=== PATIENT | female | born 1980 | race African-American/Black ===

== ENCOUNTER 2020-09-18 18:01 | Emergency (ER) | payer SELFPAY ==
[2020-09-18] MEDS ORDERED: MAGNES/ALUMIN/SIMET 30ML UCUP ONE (20:02)
[2020-09-18] MEDS ORDERED: ONDANSETRON 4 MG/2 ML VIAL ONE (20:02)
[2020-09-18] MEDS ORDERED: ASCORBIC ACID 500 MG TABLET ONE (20:03)
[2020-09-18] MEDS ORDERED: LIDOCAINE VISCOUS 2% SOLN 15 ML UDC ONE (20:03)
--- NOTE | 2020-09-18 20:12 | RAD REPORT ---
EXAM DESCRIPTION: RAD - Chest Single View - 09/18/2020 7:57 pm CLINICAL HISTORY: CHEST PAIN Chest pain. COMPARISON: Chest Single View dated 01/11/2017 FINDINGS: Portable technique limits examination quality. The lungs are grossly clear. The heart is normal in size. No displaced fractures. IMPRESSION: No acute intrathoracic process suspected.
[2020-09-18 20:18] LABS: Absolute Lymphocytes (CBC) 2.2 K/uL (0.7-4.9); Basophils % 0.5 % (0-1.3); Hematocrit 31.5 % (36.0-45.0); Lymphocytes % 15.1 % (15.3-44.8); MPV 9.6 fL (7.6-11.3); RBC Red Blood Cell Count 5.49 M/uL (3.86-4.86)
[2020-09-18 20:23] LABS: ALT/SGPT 14 U/L (12-78); AST/SGOT 15 U/L (15-37); Albumin 3.4 g/dL (3.4-5.0); Alkaline Phosphatase 96 U/L (45-117); BUN Blood Urea Nitrogen 12 mg/dL (7-18); Bicarbonate 27 mmol/L (21-32); Bilirubin Direct < 0.1 mg/dL (0-0.2); Bilirubin Total 0.2 mg/dL (0.2-1.0); Glucose Level 95 mg/dL (74-106); NT PRO-BNP 43 pg/mL (<125); Potassium 3.7 mmol/L (3.5-5.1); Protein, Total 7.3 g/dL (6.4-8.2); Sodium Level 140 mmol/L (136-145); Troponin (Emerg Dept Use Only) < 0.02 ng/mL (0.0-0.045)
[2020-09-18 21:34] LABS: Urine Blood TRACE (NEG); Urine Glucose NEGATIVE (NEG); Urine Protein NEGATIVE (NEG); Urine Specific Gravity 1.015 (1.005-1.030); Urine pH 5.5 (5.0-7.0)
--- NOTE | 2020-09-18 21:48 | ER ---
Nurse's Notes [facility] Name: Torrey Brian Age: 40 yrs Sex: Female : 1980 Arrival Date: 09/18/2020 Time: 18:05 Bed 15 Private MD: Diagnosis: Palpitations;Elevated white blood cell count, unspecified Presentation: 09/18 18:15 Chief complaint: Patient states: I feel like my heart has irregular beating, and ca1 pressure on my chest. Been going on for about 3 weeks, comes and goes but today, it's been all day. Reports nausea and L arm tingling. Also walk up with my L leg numb this morning. Coronavirus screen: Client denies travel out of the [place] in the last 14 days. nausea, Client presents with at least one sign or symptom that may indicate coronavirus-19. Standard/surgical mask placed on the client. Provider contacted for isolation considerations. Ebola Screen: Patient negative for fever greater than or equal to 101.5 degrees Fahrenheit, and additional compatible Ebola Virus Disease symptoms Patient denies exposure to infectious person. Patient denies travel to an Ebola-affected area in the 21 days before illness onset. No symptoms or risks identified at this time. Initial Sepsis Screen: Does the patient meet any 2 criteria? No. Patient's initial sepsis screen is negative. Does the patient have a suspected source of infection? No. Patient's initial sepsis screen is negative. Risk Assessment: Do you want to hurt yourself or someone else? Patient reports no desire to harm self or others. Onset of symptoms was September 18, 2020. 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 - Social history:: Smoking status: Patient denies any tobacco usage or history of. Patient/guardian denies using alcohol, street drugs, The patient lives with family. - Family history:: not pertinent. Screenin:08 Abuse screen: Denies threats or abuse. Nutritional screening: No deficits noted. ll2 Tuberculosis screening: No symptoms or risk factors identified. Fall Risk None identified. Assessment: 19:08 General: Appears in no apparent distress. Behavior is calm, cooperative, appropriate ll2 for age. Pain: Complains of pain in abdomen. Neuro: Level of Consciousness is awake, alert, obeys commands, Oriented to person, place, time, situation. Cardiovascular: Patient's skin is warm and dry. Respiratory: Airway is patent Respiratory effort is even, unlabored, Respiratory pattern is regular, symmetrical. GI: No signs and/or symptoms were reported involving the gastrointestinal system. : No signs and/or symptoms were reported regarding the genitourinary system. EENT: No signs and/or symptoms were reported regarding the EENT system. Derm: Skin is intact, is healthy with good turgor, Skin is dry, Skin is pink, warm \T\ dry. Skin temperature is warm. Musculoskeletal: Circulation, motion, and sensation intact. Range of motion: intact in all extremities. 20:00 Reassessment: Patient and/or family updated on plan of care and expected duration. Pain ll2 level reassessed. Patient is alert, oriented x 3, equal unlabored respirations, skin warm/dry/pink. Vital Signs: 18:15 BP 132 / 85; Pulse 88; Resp 16 S; Temp 97.3(TE); Pulse Ox 100% on R/A; Weight 108.86 kg ca1 (R); Height 5 ft. 6 in. (167.64 cm) (R); Pain 3/10; 18:15 Body Mass Index 38.74 (108.86 kg, 167.64 cm) ca1 ED Course: 18:05 Patient arrived in ED. ag5 18:17 Triage completed. ca1 18:18 Arm band placed on right wrist. ca1 19:05 Cruz Ramos MD is Attending Physician. ma2 19:08 Patient has correct armband on for positive identification. Call light in reach. Side ll2 rails up X 1. teletypesetter monitor on. Pulse ox on. NIBP on. 19:09 Amelie Boykin RN is Primary Nurse. ll2 19:53 Inserted saline lock: 20 gauge in right antecubital area, using aseptic technique. 4 Blood collected. 19:57 XRAY Chest (1 view) In Process Unspecified. EDMS 21:47 Donal Harrington MD is Referral Physician. ma2 22:02 No provider procedures requiring assistance completed. IV discontinued, intact, ll2 bleeding controlled, No redness/swelling at site. Pressure dressing applied. Administered Medications: 20:32 Drug: Zofran (Ondansetron) 4 mg Route: IVP; Site: right antecubital; ll2 21:02 Follow up: Response: No adverse reaction; Nausea is decreased ll2 20:32 Drug: GI Cocktail without - (Maalox Suspension 30 ml, Lidocaine Liquid 2 % 15 ll2 ml) Route: PO; 21:00 Follow up: Response: No adverse reaction ll2 Outcome: 21:47 Discharge ordered by . ma2 22:03 Discharged to home ambulatory. ll2 22:03 Condition: stable 22:03 Discharge instructions given to patient, Instructed on discharge instructions, follow up and referral plans. medication usage, Demonstrated understanding of instructions, follow-up care, medications, Prescriptions given X 2. 22:03 Patient left the ED. ll2 Signatures: Dispatcher [employer] EDMS Cruz Ramos MD MD ga2 Angelina Lizarraga RN RN Cyndi Snyder Donald 4 Amelie Boykin RN RN 2
--- NOTE | 2020-09-18 21:48 | EDPHYS ---
Physician Documentation [facility] Name: Torrey Brian Age: 40 yrs Sex: Female : 1980 Arrival Date: 09/18/2020 Time: 18:05 Bed 15 Private MD: ED Physician Cruz Ramos HPI: 09/18 21:42 This 40 yrs old Black Female presents to ER via Ambulatory with complaints of ma2 Palpitations. 21:42 The patient presents with a history of heart skipping beats. Onset: The ma2 symptoms/episode began/occurred gradually, 3 week(s) ago. Associated signs and symptoms: Pertinent negatives: chest pain, cough, lightheadedness, SOB, syncope, near-syncope, unusual stressors, vertigo. Severity of symptoms: At their worst the symptoms were mild in the emergency department the symptoms are unchanged. The patient has not experienced similar symptoms in the past. has palpitation and nausea for 3 weeks . 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 - Social history:: Smoking status: Patient denies any tobacco usage or history of. Patient/guardian denies using alcohol, street drugs, The patient lives with family. - Family history:: not pertinent. ROS: 21:42 Constitutional: Negative for fever, chills, and weight loss. ma2 21:42 All other systems are negative. Exam: 21:42 Constitutional: This is a well developed, well nourished patient who is awake, alert, ma2 and in no acute distress. Head/Face: Normocephalic, atraumatic. Eyes: Pupils equal round and reactive to light, extra-ocular motions intact. Lids and lashes normal. Conjunctiva and sclera are non-icteric and not injected. Cornea within normal limits. Periorbital areas with no swelling, redness, or edema. ENT: Nares patent. No nasal discharge, no septal abnormalities noted. Tympanic membranes are normal and external auditory canals are clear. Oropharynx with no redness, swelling, or masses, exudates, or evidence of obstruction, uvula midline. Mucous membranes moist. Neck: Trachea midline, no thyromegaly or masses palpated, and no cervical lymphadenopathy. Supple, full range of motion without nuchal rigidity, or vertebral point tenderness. No Meningismus. Chest/axilla: Normal chest wall appearance and motion. Nontender with no deformity. No lesions are appreciated. Cardiovascular: Regular rate and rhythm with a normal S1 and S2. No gallops, murmurs, or rubs. Normal PMI, no JVD. No pulse deficits. Respiratory: Lungs have equal breath sounds bilaterally, clear to auscultation and percussion. No rales, rhonchi or wheezes noted. No increased work of breathing, no retractions or nasal flaring. Abdomen/GI: Soft, non-tender, with normal bowel sounds. No distension or tympany. No guarding or rebound. No evidence of tenderness throughout. Back: No spinal tenderness. No costovertebral tenderness. Full range of motion. Skin: Warm, dry with normal turgor. Normal color with no rashes, no lesions, and no evidence of cellulitis. MS/ Extremity: Pulses equal, no cyanosis. Neurovascular intact. Full, normal range of motion. Neuro: Awake and alert, GCS 15, oriented to person, place, time, and situation. Cranial nerves II-XII grossly intact. Motor strength 5/5 in all extremities. Sensory grossly intact. Cerebellar exam normal. Normal gait. Vital Signs: 18:15 BP 132 / 85; Pulse 88; Resp 16 S; Temp 97.3(TE); Pulse Ox 100% on R/A; Weight 108.86 kg ca1 (R); Height 5 ft. 6 in. (167.64 cm) (R); Pain 3/10; 18:15 Body Mass Index 38.74 (108.86 kg, 167.64 cm) ca1 MDM: 19:05 Patient medically screened. ma2 21:42 Differential diagnosis: arrythmia. Data reviewed: vital signs, nurses notes, EMS ma2 record. Counseling: I had a detailed discussion with the patient and/or guardian regarding: the historical points, exam findings, and any diagnostic results supporting the discharge/admit diagnosis, the presence of at least one elevated blood pressure reading (>120/80) during this emergency department visit, the need for outpatient follow up. Medical screen evaluation completed. EMTALA emergency medical condition absent. Response to treatment: the patient's symptoms have markedly improved after treatment. ED course: has palpitation and nausea and heart burn, her ekg is wnl, vs wnl, and exam unremarkable. her lab shows elevated wbc 14k, otherwise unremarlable, cxr is normal and ua is wnl, no other symptoms that suggests inflammatory condition, she may has noreen gastritis, given gi cocktail and zofran and her symptoms improves, i explained to her to return to er if she develops any new symptoms as she has elevated wbc.. and recommends a holter monitor as she described palpitation as a skipped beat. ekg is wnl here... 21:48 ED course: we did not check tsh t4 as she does not have other symptoms of ma2 hyperthyroidism and advised to see her pcp . 09/18 19:36 Order name: Basic Metabolic Panel; Complete Time: 20:52 ma2 09/18 19:36 Order name: CBC with Diff ma2 09/18 19:36 Order name: Hepatic Function; Complete Time: 20:52 ma2 09/18 19:36 Order name: Magnesium; Complete Time: 20:52 ma2 09/18 19:36 Order name: NT PRO-BNP; Complete Time: 20:52 ma2 09/18 19:36 Order name: Protime (+inr); Complete Time: 20:52 ma2 09/18 19:36 Order name: Troponin (emerg Dept Use Only); Complete Time: 20:52 ma2 09/18 19:36 Order name: XRAY Chest (1 view); Complete Time: 20:18 ma2 09/18 20:28 Order name: Manual Differential EDMS 09/18 20:28 Order name: D-Dimer; Complete Time: 20:52 EDMS 09/18 21:20 Order name: Urine Dipstick--Ancillary (enter results); Complete Time: 21:42 tt3 09/18 21:20 Order name: Urine --Ancillary (enter results); Complete Time: 21:42 tt3 09/18 18:28 Order name: EKG; Complete Time: 18:29 ca1 09/18 18:28 Order name: EKG - Nurse/Tech; Complete Time: 18:28 ca1 09/18 19:36 Order name: Cardiac monitoring; Complete Time: 19:54 ma2 09/18 19:36 Order name: IV Saline Lock; Complete Time: 19:53 ma2 09/18 19:36 Order name: Labs collected and sent; Complete Time: 19:53 ma2 09/18 19:36 Order name: O2 Per Protocol; Complete Time: 19:53 ma2 09/18 19:36 Order name: O2 Sat Monitoring; Complete Time: 19:53 ma2 09/18 20:53 Order name: Urine Dipstick-Ancillary (obtain specimen); Complete Time: 21:10 ma2 Administered Medications: 20:32 Drug: Zofran (Ondansetron) 4 mg Route: IVP; Site: right antecubital; ll2 21:02 Follow up: Response: No adverse reaction; Nausea is decreased ll2 20:32 Drug: GI Cocktail without - (Maalox Suspension 30 ml, Lidocaine Liquid 2 % 15 ll2 ml) Route: PO; 21:00 Follow up: Response: No adverse reaction ll2 Disposition: 09/18/20 21:47 Discharged to Home. Impression: Palpitations, Elevated white blood cell count, unspecified. - Condition is Stable. - Discharge Instructions: Palpitations, Leukocytosis. - Prescriptions for Pepcid 20 mg Oral Tablet - take 1 tablet by ORAL route once daily for 10 days; 10 tablet. Zofran 4 mg Oral Tablet - take 1 tablet by ORAL route every 12 hours As needed; 20 tablet. - Medication Reconciliation Form, Thank You Letter, Antibiotic Education, Prescription Opioid Use, Work release form form. - Follow up: Donal Harrington; When: 2 - 3 days; Reason: Continuance of care. Follow up: Private Physician; When: Tomorrow; Reason: Continuance of care. Signatures: Dispatcher [employer] EDMS Cruz Ramos MD MD ma2 Angelina Lizarraga RN RN ca1 Amelie Boykin RN RN ll2 Corrections: (The following items were deleted from the chart) 20:28 19:38 D-DIMER+COAG.LAB.BRZ ordered. EDMS EDMS 22:03 21:47 09/18/2020 21:47 Discharged to Home. Impression: Palpitations; Elevated white ll2 blood cell count, unspecified. Condition is Stable. Prescriptions for Pepcid 20 mg Oral Tablet - take 1 tablet by ORAL route once daily for 10 days; 10 tablet, Lasix 20 mg Oral Tablet - take 1 tablet by ORAL route once daily; 20 tablet. and Forms are Work release form, Medication Reconciliation Form, Thank You Letter, Antibiotic Education, Prescription Opioid Use. Follow up: Donal Harrington; When: 2 - 3 days; Reason: Continuance of care. Follow up: Private Physician; When: Tomorrow; Reason: Continuance of care. ma2
[2020-09-18 21:54] LABS: Anisocytosis 1+; Blood Morphology Comment NOTED (NOT SEEN); Hypochromasia 2+; Platelet Estimate ADEQ
--- NOTE | 2020-09-19 12:41 | EKG ---
Test Date: 2020-09-18 Test Time: 18:26:07 Pbx Teacher: PAMELA MEASUREMENT RESULTS: Intervals: Rate: 83 HI: 118 QRSD: 84 QT: 358 QTc: 420 [place]: P: 49 HI: 118 QRS: 53 T: 36 INTERPRETIVE STATEMENTS: Normal sinus rhythm RSR' or QR pattern in V1 suggests right ventricular conduction delay Borderline ECG Compared to ECG 06/09/2010 17:06:26 RSR' in V1 or V2 now present Electronically Signed On 09-19-20 12:39:32 METAL FORGER'S ASSISTANT by Donal Harrington
[2020-09-20 02:45] VITALS: BP 132/85; TEMP 97.3; O2SAT 100
== END 2020-09-18 22:03 | disposition home or self-care (01) ==
LOC: ER 18:01
DX: D72.829 Elevated white blood cell count, unspecified (principal); Z88.1 Allergy status to other antibiotic agents; Z88.5 Allergy status to narcotic agent
CPT/HCPCS: 36415; 71045; 80048; 80076; 81003; 81025; 83735; 83880; 84484; 85025; 85379; 85610; 93005; 96374; 99284; J2405

== ENCOUNTER → 2023-12-19 | Emergency (ER) | payer BC, SELFPAY ==
[2023-12-19 11:29] LABS: Absolute Eosinophils 0.1 K/uL (0-0.5); Absolute Lymphocytes (CBC) 1.8 K/uL (0.7-4.9); Absolute Monocytes 0.5 K/uL (0.1-1.3); Basophils % 0.4 % (0-1.3); Eosinophils % 0.9 % (0-4.4); Hematocrit 34.3 % (36.0-45.0); Hemoglobin 10.9 g/dL (12.0-15.0); Lymphocytes % 21.5 % (15.3-44.8); MCH 19.3 pg (27.0-35.0); MCHC 31.7 g/dL (32.0-36.0); MCV 60.9 fL (80-100); MPV 9.2 fL (7.6-11.3); Monocytes % 6.3 % (3.3-12.3); Neutrophils % 70.9 % (41.7-73.7); Platelets 320 thou/uL (152-406); RBC Red Blood Cell Count 5.63 M/uL (3.86-4.86); Red Cell Distribution Width 19.1 % (12.1-15.2)
[2023-12-19 11:50] LABS: Anion Gap 7.8 mEq/L (5.0-15.0); BUN Blood Urea Nitrogen 11 mg/dL (7-18); Bicarbonate 26 mEq/L (21-32); Glomerular Filtration Rate 83 ml/min (=/>90); Glucose Level 99 mg/dL (74-106); NT PRO-BNP 42 pg/mL (<125); Potassium 3.8 mEq/L (3.5-5.1); Sodium Level 138 mEq/L (136-145); Troponin High Sensitivity < 3.0 pg/mL (<58.9)
--- NOTE | 2023-12-19 12:05 | RAD REPORT ---
EXAM DESCRIPTION: Ernie Single View12/19/2023 11:50 am CLINICAL HISTORY: Chest pain COMPARISON: 2019 FINDINGS: The lungs appear clear of acute infiltrate. The heart is normal size IMPRESSION: No acute abnormalities displayed
[2023-12-19 12:46] LABS: Hypochromasia 1+; Platelet Estimate ADEQ; White Blood Cell Scan OK (OK)
[2023-12-19 12:47] LABS: Anisocytosis 1+; Microcytosis 1+
--- NOTE | 2023-12-19 12:52 | EDPHYS ---
Physician Documentation [facility] Name: Torrey Cowart Age: 43 yrs Sex: Female : 1980 Arrival Date: 12/19/2023 Time: 10:50 Bed 8 Private MD: Hua Hudson ED Physician Brian Aguirre HPI: 12/18 11:40 This 43 yrs old Black Female presents to ER via Ambulatory with complaints of Breathing rn Difficulty, Headache. 11:40 The patient has shortness of breath at rest, with light activity. Onset: The rn symptoms/episode began/occurred today. The patient's shortness of breath is aggravated by nothing, is alleviated by nothing. Associated signs and symptoms: Pertinent positives: This patient does not have any pertinent positive signs or symptoms associated with shortness of breath. Pertinent negatives: fever, hemoptysis. Severity of symptoms: At their worst the symptoms were mild in the emergency department the symptoms are unchanged. The patient has not experienced similar symptoms in the past. Patient reports is getting her house remodeled currently due to mold. Noticed this morning that was having mild difficulty breathing, denies chest pain but reports her chest does not feel right. No vomiting or diaphoresis. No chronic cardiac or pulmonary problems. Non-smoker. No trauma. No hemoptysis. No fever or reports of infectious symptoms.. 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 - Social history:: Smoking status: Patient denies any tobacco usage or history of. - Family history:: not pertinent. - Hospitalizations: : No recent hospitalization is reported. ROS: 11:40 Constitutional: Negative for fever, chills, and weight loss, Cardiovascular: Negative rn for chest pain, palpitations, and edema, Respiratory: Positive for shortness of breath Abdomen/GI: Negative for abdominal pain, nausea, vomiting, diarrhea, and constipation, MS/Extremity: Negative for injury and deformity, Skin: Negative for injury, rash, and discoloration, Neuro: Positive for headache and generalized malaise Exam: 11:40 Constitutional: This is a well developed, well nourished patient who is awake, alert, rn and in no acute distress. Cardiovascular: Regular rate and rhythm. No pulse deficits. Respiratory: Speaking full sentences, unlabored. No increased work of breathing, no retractions or nasal flaring. Abdomen/GI: Soft, non-tender MS/ Extremity: Pulses equal, no cyanosis. Neuro: Awake and alert, GCS 15 12:50 ECG was reviewed by the Attending Physician. rn Vital Signs: 11:05 BP 133 / 99; Pulse 89; Resp 16; Temp 98.4; Pulse Ox 100% on R/A; Weight 106.59 kg; iw Height 5 ft. 6 in. ; Pain 3/10; 12:02 BP 136 / 86; Pulse 77; Resp 16; Pulse Ox 100% on R/A; hb 13:34 BP 129 / 77; Pulse 72; Resp 16; Pulse Ox 100% on R/A; mb9 11:05 Body Mass Index 37.93 (106.59 kg, 167.64 cm) iw 11:05 Pain Scale: Adult iw MDM: 10:59 Patient medically screened. rn 12:50 Differential diagnosis: Anemia Anxiety Reaction Bronchitis Myocardial Infarction rn pneumonia, Pneumothorax pulmonary edema, Pulmonary Embolism. Data reviewed: vital signs, nurses notes, lab test result(s), EKG, radiologic studies, plain films, and as a result, I will discharge patient. Counseling: I had a detailed discussion with the patient and/or guardian regarding the historical points, exam findings, and any diagnostic results supporting the discharge/admit diagnosis, lab results, radiology results, the need for outpatient follow up, to return to the emergency department if symptoms worsen or persist or if there are any questions or concerns that arise at home. Special discussion: I discussed with the patient/guardian in detail that at this point there is no indication for admission to the hospital. It is understood, however, that if the symptoms persist or worsen the patient needs to return immediately for re-evaluation. 12/18 11:12 Order name: Basic Metabolic Panel; Complete Time: 12:26 rn 12/18 11:12 Order name: CBC with Diff; Complete Time: 12:57 rn 12/18 11:12 Order name: D-Dimer; Complete Time: 12: rn 12/18 11:12 Order name: NT PRO-BNP; Complete Time: 12: rn 12/18 11:12 Order name: Troponin HS; Complete Time: 12: rn 12/18 11:38 Order name: CBC Smear Scan; Complete Time: 12:57 EDMS 12/18 11:12 Order name: XRAY Chest (1 view); Complete Time: 12: rn 12/18 11:12 Order name: EKG; Complete Time: 11: rn 12/18 11:12 Order name: Cardiac monitoring; Complete Time: 11: rn 12/18 11:12 Order name: EKG - Nurse/Tech; Complete Time: : rn 12/18 11:12 Order name: IV Saline Lock; Complete Time: rn 12/18 11:12 Order name: Labs collected and sent; Complete Time: rn 12/18 11:12 Order name: O2 Per Protocol; Complete Time: : rn 12/18 11:12 Order name: O2 Sat Monitoring; Complete Time: 11:15 rn EC:50 Rate is 85 beats/min. Rhythm is regular. QRS [place] is Normal. SD interval is normal. QRS rn interval is normal. QT interval is normal. No Q waves. T waves are Normal. No ST changes noted. Clinical impression: Normal ECG. Interpreted by me. Reviewed by me. Administered Medications: No medications were administered Disposition Summary: 12/19/23 12:51 Discharge Ordered Notes: Location: Home rn Problem: new rn Symptoms: have improved rn Condition: Stable rn Diagnosis - Dyspnea, unspecified rn Followup: rn - With: Private Physician - When: As needed - Reason: Recheck today's complaints, Re-evaluation by your physician Discharge Instructions: - Discharge Summary Sheet rn - Shortness of Breath, Adult rn Forms: - Medication Reconciliation Form rn - Thank You Letter rn - Antibiotic internal medicine physician assistant - Prescription Opioid Use rn - Patient Portal Instructions rn - Leadership Thank You Letter rn Signatures: Dispatcher [employer] Tatiana Menjivar RN Brian Jain MD MD pattern carrier: (The following items were deleted from the chart) 11:27 11:12 Chest Pa And Lat (2 Views)+RAD.RAD.BRZ ordered. EDAR EDMS
--- NOTE | 2023-12-19 12:52 | ER ---
Nurse's Notes [facility] Name: Torrey Cowart Age: 43 yrs Sex: Female : 1980 Arrival Date: 12/19/2023 Time: 10:50 Bed 8 Private MD: Hua Hudson Diagnosis: Dyspnea, unspecified Presentation: 12/18 11:05 Chief complaint: Patient states: for the last week has been having heart palpitations iw and headaches and my breathing feels off, has been remodeling the house so there is mold and asbestos. Coronavirus screen: At this time, the client does not indicate any symptoms associated with coronavirus-19. Ebola Screen: Patient negative for fever greater than or equal to 101.5 degrees Fahrenheit, and additional compatible Ebola Virus Disease symptoms Patient denies exposure to infectious person. Patient denies travel to an Ebola-affected area in the 21 days before illness onset. No symptoms or risks identified at this time. Initial Sepsis Screen: Does the patient meet any 2 criteria? No. Patient's initial sepsis screen is negative. Does the patient have a suspected source of infection? No. Patient's initial sepsis screen is negative. Risk Assessment: Do you want to hurt yourself or someone else? Patient reports no desire to harm self or others. Onset of symptoms was December 12, 2023. 11:05 Method Of Arrival: Ambulatory iw 11:05 Acuity: ISAI 3 iw Triage Assessment: 11:27 General: Appears in no apparent distress. Respiratory: the patient has mild shortness mb9 of breath. 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 - Social history:: Smoking status: Patient denies any tobacco usage or history of. - Family history:: not pertinent. - Hospitalizations: : No recent hospitalization is reported. Screenin:25 [facility] ED Fall Risk Assessment (Adult) History of falling in the last 3 months, mb9 including since admission No falls in past 3 months (0 pts) Confusion or Disorientation No (0 pts) Intoxicated or Sedated No (0 pts) Impaired Gait No (0 pts) Mobility Assist Device Used No (0 pt) Altered Elimination No (0 pt) Score/Fall Risk Level 0 - 2 = Low Risk Oriented to surroundings, Maintained a safe environment, Educated pt \T\ family on fall prevention, incl call for assistance when getting out of bed. Abuse screen: Denies threats or abuse. Nutritional screening: No deficits noted. Tuberculosis screening: No symptoms or risk factors identified. Assessment: 11:26 General: Appears in no apparent distress. Behavior is calm, cooperative, appropriate mb9 for age. Pain: Complains of pain in chest Pain does not radiate. Pain currently is 2 out of 10 on a pain scale. Quality of pain is described as throbbing, Pain began 1 week ago Is intermittent. Neuro: Wilks Agitation-Sedation Scale (RASS): 0 - Alert and Calm Level of Consciousness is awake, alert, obeys commands, Oriented to person, place, time, situation, Appropriate for age. Cardiovascular: Reports palpitations, Heart tones S1 S2 present Patient's skin is warm and dry. Pulses are all present. Rhythm is regular. Respiratory: Reports shortness of breath Airway is patent Respiratory effort is even, unlabored, Respiratory pattern is regular, symmetrical, Breath sounds are clear bilaterally. GI: Abdomen is round non-distended, Bowel sounds present X 4 quads. Abd is soft Abdomen is tender to palpation in epigastric area Reports nausea. : No signs and/or symptoms were reported regarding the genitourinary system. EENT: No signs and/or symptoms were reported regarding the EENT system. Derm: Skin is pink, warm \T\ dry. Musculoskeletal: Range of motion: intact in all extremities. 12:03 Reassessment: Patient appears in no apparent distress at this time. Patient and/or hb family updated on plan of care and expected duration. Pain level reassessed. Patient is alert, oriented x 3, equal unlabored respirations, skin warm/dry/pink. 13:34 Reassessment: No changes from previously documented assessment. Patient and/or family mb9 updated on plan of care and expected duration. Pain level reassessed. Patient is alert, oriented x 3, equal unlabored respirations, skin warm/dry/pink. Patient states feeling better. Patient states symptoms have improved. Vital Signs: 11:05 BP 133 / 99; Pulse 89; Resp 16; Temp 98.4; Pulse Ox 100% on R/A; Weight 106.59 kg; iw Height 5 ft. 6 in. ; Pain 3/10; 12:02 BP 136 / 86; Pulse 77; Resp 16; Pulse Ox 100% on R/A; hb 13:34 BP 129 / 77; Pulse 72; Resp 16; Pulse Ox 100% on R/A; mb9 11:05 Body Mass Index 37.93 (106.59 kg, 167.64 cm) iw 11:05 Pain Scale: Adult iw ED Course: 10:51 Patient arrived in ED. rg4 10:53 Hua Hudson MD is Private Physician. rg4 10:59 Brian Aguirre MD is Attending Physician. rn 11:07 Triage completed. iw 11:07 Arm band placed on. iw 11:15 Angelica Gandhi, RN is Primary Nurse. mb9 11:25 Placed in gown. Bed in low position. Call light in reach. Side rails up X 1. Client mb9 placed on continuous cardiac and pulse oximetry monitoring. NIBP monitoring applied. 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 Door closed. Noise minimized. Warm blanket given. One-on-one care X 15 minutes. 11:25 No provider procedures requiring assistance completed. EKG done, by ED staff, reviewed mb9 by Brian Aguirre MD. Inserted saline lock: 20 gauge in right antecubital area, using aseptic technique. Blood collected. Patient maintains SpO2 saturation greater than 95% on room air. 11:27 Provided Education on: press call light if needing anything. mb9 11:27 Thermoregulation: warm blanket given to patient. mb9 11:28 Initial lab(s) drawn, by pr, sent to lab. mb9 11:28 Basic Metabolic Panel Sent. mb9 11:28 CBC with Diff Sent. mb9 11:28 D-Dimer Sent. mb9 11:28 NT PRO-BNP Sent. mb9 11:28 Troponin HS Sent. mb9 11:51 XRAY Chest (1 view) In Process Unspecified. EDMS 13:35 IV discontinued, intact, bleeding controlled, No redness/swelling at site. Pressure mb9 dressing applied. Administered Medications: No medications were administered Medication: 11:27 VIS not applicable for this client. mb9 Outcome: 12:51 Discharge ordered by . rn 13:35 Discharged to home ambulatory, mb9 13:35 Condition: stable 13:35 Discharge instructions given to patient, Instructed on discharge instructions, follow up and referral plans. Demonstrated understanding of instructions, follow-up care, 13:35 Patient left the ED. mb9 Signatures: Dispatcher [employer] EDTatiana Amos RN RN iw Nieto, Roman, MD MD rn Baxter, Heather, RN RN hb Garcia, Rubi rg Hiram, Angelica Alonso RN RN mb9
[2023-12-19 12:53] LABS: Blood Morphology Comment NOTED (NOT SEEN)
[2023-12-19 13:57] VITALS: BP 129/77; TEMP 98.4; O2SAT 100
--- NOTE | 2023-12-22 14:27 | EKG ---
Test Date: 2023-12-19 Test Time: 10:20:37 Luncheonette Operator: JOHNNIEW MEASUREMENT RESULTS: Intervals: Rate: 85 NE: 128 QRSD: 84 QT: 372 QTc: 442 [place]: P: 63 NE: 128 QRS: 64 T: 39 INTERPRETIVE STATEMENTS: Normal sinus rhythm Normal ECG No previous ECG available for comparison Electronically Signed On 12-22-23 14:17:02 CDT by Aaron Ayala
== END ==
LOC: ER 10:50
DX: R06.00 Dyspnea, unspecified (principal); R51.9 Headache, unspecified; Z28.310 Unvaccinated for COVID-19; Z88.5 Allergy status to narcotic agent; Z88.8 Allergy status to other drugs, medicaments and biological substances
CPT/HCPCS: 36415; 71045; 80048; 83880; 84484; 85025; 85379; 93005; 99285